=== PATIENT | male | born 1950 | race Caucasian/White ===

== ENCOUNTER → 2017-02-06 | Outpatient (CLI) | payer OTHER, BC ==
[~2017-02-06] MED LIST: ASPCH81X PO; ATOR-26 PO; CHOL2000 PO; CITA20TA4 PO; FOLITAB21 PO; GLIM4TAB PO; KETO10TA PO; LRT5 PO; LVMI SC; METF1TAB53 PO; OLME1TAB11 PO; OXYC-57 PO; PANT1TAB48 PO; PANT40TA; WARF10TA4 PO; WARF4TAB8 PO
--- NOTE | 2017-02-06 14:04 | DIAGNOSTIC IMAGING REPORT ---
CHEST 2 VIEWS ROUTINE CLINICAL HISTORY: PRE OP TESTING, WENT TO [facility], SEND TO [facility] COMPARISON STUDY: No previous studies for comparison. FINDINGS: The bones soft tissues and hemidiaphragms are normal. The cardiomediastinal silhouette is normal. The lungs are clear. The pulmonary vasculature is normal. IMPRESSION: Negative chest. Electronically signed by: Gt Liriano M.D. 02/06/2017 2:03 PM Dictated Date/Time: 02/06/2017 2:03 PM
[2017-02-06 15:04] LABS: BASO % 0.6 %; BASO ABS # 0.04 K/uL (0-0.2); COMPLETE YES; EOS % 2.1 %; HEMATOCRIT 37.1 % (42-52); IG% 0.3 %; LYMPH % 21.8 %; LYMPH ABS # 1.54 K/uL (1.2-3.4); MEAN CELL VOLUME 89.8 fL (80-100); MEAN CORPUSCULAR HEMOGLOBIN 29.5 pg (25-34); MEAN CORPUSCULAR HGB CONC 32.9 g/dl (32-36); MEAN PLATELET VOLUME 11.4 fL (7.4-10.4); MONO % 10.2 %; PLATELET COUNT 170 K/uL (130-400); RED BLOOD COUNT 4.13 M/uL (4.7-6.1); WHITE BLOOD COUNT 7.05 K/uL (4.8-10.8)
[2017-02-06 15:26] LABS: BLOOD UREA NITROGEN 18 mg/dl (7-18); BUN/CREATININE RATIO 13.5 (10-20); CALCIUM 8.3 mg/dl (8.5-10.1); CARBON DIOXIDE 31 mmol/L (21-32); CHLORIDE 105 mmol/L (98-107); GLUCOSE 73 mg/dl (70-99); POTASSIUM 3.9 mmol/L (3.5-5.1); SODIUM 142 mmol/L (136-145)
== END | disposition home or self-care (01) ==
LOC: C.LAB 13:01
PROVIDERS: ATTEND Orthopaedic Surgery
DX: Z01.811 Encounter for preprocedural respiratory examination (principal); Z01.810 Encounter for preprocedural cardiovascular examination; Z01.812 Encounter for preprocedural laboratory examination; M25.511 Pain in right shoulder

== ENCOUNTER 2017-02-22 13:03 | Day surgery (SDC) | payer OTHER, BC ==
[2017-02-14 09:06] VITALS: BMI 28.0
[2017-02-14 11:45] VITALS: BMI 28.0
--- NOTE | 2017-02-21 15:50 | HISTORY & PHYSICAL EXAMINATION ---
DATE OF ADMISSION: 02/22/2017 CHIEF COMPLAINT: External impingement of the right shoulder. HISTORY OF PRESENT ILLNESS: Reynaldo is a 67-year-old right hand dominant male who has been having right shoulder pain for about 8 months. He does not recall any injuries or trauma to his shoulder. He has been having increased pain and discomfort. He is very active and tries to spend a lot of time outside. MRI of his shoulder showed external impingement, no signs of rotator cuff tear. After failing extensive conservative treatment, he decided to undergo arthroscopy. PAST MEDICAL HISTORY: Significant for diabetes, blood clots, hyperlipidemia, hypertension. PAST SURGICAL HISTORY: Significant for left rotator cuff repair. ALLERGIES: None. MEDICATIONS: Include Levimer 50 mg in the morning and 10 mg in the evening, Folbic 1 tab daily, glimepiride 8 mg daily, pantoprazole 40 mg daily, metformin 1000 mg daily, atorvastatin 80 mg daily, Benicar 20 mg daily, citalopram 20 mg daily, Coumadin 9 mg daily, aspirin 81 mg daily, and vitamin D. FAMILY HISTORY: Noncontributory. SOCIAL HISTORY: He is , never drinks. Has a 30-year history of a pack a day. He is very active. REVIEW OF SYSTEMS: He complains of right shoulder pain. All other pertinent review of systems are negative. PHYSICAL EXAMINATION: GENERAL: He is awake, alert and oriented x3. He is in no apparent distress. He is very pleasant. HEAD, EYES, EARS, NOSE, AND THROAT: Pupils are equal, round and reactive to light. Extraocular motion intact. Oral mucosa is pink and moist. HEART: Regular rate per radial pulse. LUNGS: Cristy symmetrically bilaterally with no audible breath sounds. ABDOMEN: Soft, nontender, nondistended. MUSCULOSKELETAL: On physical examination of the right shoulder, he has about 130 degrees of forward elevation before he begins having pain. He is able to get through a full range of motion. He does have pain at end range of motion. He has 4/5 muscle strength to full can testing and external rotation secondary to pain. He has negative bear hug and belly press test, significantly tender in the subacromial space. No biceps or AC joint tenderness. IMAGING: MRI of the shoulder shows no evidence of rotator cuff tear but a large subacromial spur and signs of external impingement. IMPRESSION: External impingement of the right shoulder. PLAN: Will proceed with a shoulder arthroscopy. Postoperatively, he will be placed in an arm sling and discharged to home on oral pain medications. LIDIA
[~2017-02-22] VITALS: Ht 190.5 cm; Wt 102.3 kg
--- NOTE | 2017-02-22 11:22 | History & Physical Bridge Note ---
H&P Re-Evaluation Bridge Note: I have examined the patient, reviewed the History & Physical and in the interval since the performance of the History & Physical I have noted the following changes of clinical significance: No changes noted
[~2017-02-22 13:03] MED LIST changes: +ACETAMINOPHEN 500 MG TAB PO SCH; +ATROPINE SULFATE 0.1 MG/ML 5ML SYR IV PRN; +CEFAZOLIN 2000 MG/60 ML D5W 60 ML IV SCH; +EpHEDrine SULFATE INJ 50 MG/ML AMP IV PRN; +FAMOTIDINE 20 MG TAB PO SCH; +FENTANYL CITRATE INJ 50 MCG/1 ML 2 ML VIAL IV PRN; +FENTANYL CITRATE INJ 50 MCG/1 ML 2 ML VIAL ONE; -KETO10TA PO; +LACTATED RINGER'S 1000ML 1,000 ML IV SCH; +LIDOCAINE HCL 2% 2 ML VIAL (20MG/ML) ONE; -LRT5 PO; +MIDAZOLAM HCL 1 MG/ML 2ML VIAL ONE; +MISSING PHYSICIAN SIGNATURE ON ORDER SCH; +ONDANSETRON INJ 2 MG/ML 2 ML VIAL IV PRN; +ONDANSETRON INJ 2 MG/ML 2 ML VIAL ONE; -OXYC-57 PO; -PANT40TA; +PROPOFOL IV EMULSION 10 MG/ML 20 ML VIAL IV ONE; +ROCURONIUM BROMIDE 10 MG/ML 5 ML VIAL ONE
[2017-02-22 13:44] LABS: INR 1.3 (0.9-1.1); PARTIAL THROMBOPLASTIN RATIO 1.1; PROTHROMBIN TIME (PATIENT) 14.4 SECONDS (9.0-12.0)
[2017-02-22 13:49] VITALS: BP 136/70; PULSE 45; TEMP 36.6; Ht 190.5 cm; Wt 102.3 kg
[2017-02-22] MEDS ORDERED: ROPIVACAINE 0.5% 5 MG/ML 30 ML VIAL ONE (14:27)
[2017-02-22] MEDS ORDERED: PROPOFOL IV EMULSION 10 MG/ML 20 ML VIAL IV ONE (15:01)
[2017-02-22] MEDS ORDERED: LIDOCAINE HCL 2% 2 ML VIAL (20MG/ML) ONE (15:01)
[2017-02-22] MEDS ORDERED: EpINEphrine HCL INJ 1 MG/ML 5ML SYRINGE ONE (15:33)
[2017-02-22] MEDS ORDERED: EpHEDrine SULFATE INJ 50 MG/ML AMP ONE (15:58)
[2017-02-22] MEDS ORDERED: ONDANSETRON INJ 2 MG/ML 2 ML VIAL ONE (16:47)
[2017-02-22] MEDS ORDERED: KETO10TA PO (16:55)
[2017-02-22] MEDS ORDERED: OXYC-57 PO (16:55)
--- NOTE | 2017-02-22 16:56 | Discharge Instructions ---
Discharge Instructions Date of Service Feb 22, 2017. Admission Reason for Admission: Right Shoulder Impingement Discharge Discharge Diagnosis / Problem: SAME ABOVE Discharge Goals Goal(s): Decrease discomfort, Improve function Activity Recommendations Activity Limitations: as noted below Lifting Limitations: gradually increase as tolerated Exercise/Sports Limitations: gradually increase as tolerated Driving or Machine Use: WHEN OUT OF THE SLING AND OFF OF PAIN MEDICATION . Instructions / Follow-Up Instructions / Follow-Up MEDICATIONS: * Resume previous medications unless instructed otherwise by your surgeon. * Always take pain medication on a full stomach or with food to avoid upset stomach. * Do not drink alcohol or drive while taking narcotics. * Ibuprofen or Tylenol may be taken if narcotic not needed. SPECIAL CARE INSTRUCTIONS: __ None _X_ Keep extremity elevated and iced x 48 hours; apply ice 20-30 minutes 8-10 times/day. May remove at night. _X_ Sling (WEAR NEEDED FOR COMFORT) __24 hrs/day __ Remove at night __ Shoulder Immobilizer __ 24 hrs/day __ Remove at night __ Dressing __ Maintain until seen in office, may shower with plastic over site __ Remove dressings in 24-48 hours and then may shower __ Cover incisions with band-aids after showering __ Do not remove steri-strips Call physician if chills or temperature rises above 102 degrees or pain unrelieved by prescribed pain medications at . . Current Hospital Diet Patient's current hospital diet: Discharge Diet Recommended Diet: Regular Diet Fluid Restriction: None Procedures Procedures Performed: Right Shoulder Arthroscopy, Subacromial Decompression Pending Studies Studies pending at discharge: no Work Instructions Return To Work: after follow-up Medical Emergencies . Who to Call and When: Medical Emergencies: If at any time you feel your situation is an emergency, please call 911 immediately. . Non-Emergent Contact Non-Emergency issues call your: Primary Care Provider Call Non-Emergent contact if: you have a fever, temperature is above 101.5 . "Provider Documentation" section prepared by Seth Hillman. . VTE Core Measure Inpt VTE Proph given/why not?: Treatment not indicated
[2017-02-22] MEDS ORDERED: SODIUM CHLORIDE 0.9% 1000ML 1,000 ML IV SCH (16:57)
[2017-02-22] MEDS ORDERED: ONDANSETRON INJ 2 MG/ML 2 ML VIAL IV PRN (17:00)
[2017-02-22] MEDS ORDERED: OXYCODONE/ACETAMINOPHEN 5-325 TAB PO PRN ×2 (17:00)
--- NOTE | 2017-02-22 17:05 | Anesthesiology Progress Note ---
Anesthesia Post Op Note Date & Time Feb 22, 2017 at 17:04 Vital Signs Pain Intensity: 0 Vital Signs Past 12 Hours Date Time Temp Pulse Resp B/P (MAP) Pulse Ox O2 Delivery O2 Flow Rate FiO2 02/22/17 16:51 36.6 64 18 157/88 100 Mask 10 02/22/17 13:49 36.6 45 18 136/70 Room Air Notes Mental Status: alert / awake / arousable, participated in evaluation Pt Amnestic to Procedure: Yes Nausea / Vomiting: adequately controlled Pain: adequately controlled Airway Patency, RR, SpO2: stable & adequate BP & HR: stable & adequate Hydration State: stable & adequate Anesthetic Complications: no major complications apparent
--- NOTE | 2017-02-22 17:20 | [facility] Post Operative Brief Note ---
Immediate Operative Summary Operative Date Feb 22, 2017. Pre-Operative Diagnosis External impingement of the right shoulder Post-Operative Diagnosis Same as preop Procedure(s) Performed Right Shoulder Arthroscopy, Subacromial Decompression Surgeon Dr. Wright Clinical Informatics Physician Surgeon(s) None Estimated Blood Loss 5 ml Findings as above Specimens none Complication(s) None Disposition Recovery Room / PACU
[2017-02-22 17:30] VITALS: BP 123/62; PULSE 48; TEMP 36.3; O2SAT 96
[2017-02-22 18:00] VITALS: BP 116/53; PULSE 46; O2SAT 99
[2017-02-22 18:30] VITALS: BP 107/53; PULSE 53; TEMP 36.3; O2SAT 99
--- NOTE | 2017-02-22 23:35 | OPERATIVE REPORT ---
DATE OF OPERATION: 02/22/2017 PREOPERATIVE DIAGNOSIS: Severe external impingement of the right shoulder. POSTOPERATIVE DIAGNOSIS: Same. PROCEDURE: Right shoulder diagnostic arthroscopy with extensive debridement and acromioplasty. SURGEON: Dr. Cornelio Wright. DAY CARE PROVIDER: Fernando Hillman PA-C, whose assistance was necessary for positioning the arm and helping with instrumentation. ANESTHESIA: General with a right interscalene nerve block. COMPLICATION: None. CONDITION: Stable to PACU. INDICATIONS: Reynaldo is a pleasant 67-year-old male who presented to my office with complaints of 8-month history of right shoulder pain. MRI showed an intact rotator cuff. Physical examination was positive for severe external impingement. After failing extensive conservative treatment including multiple injections, he elected to proceed with arthroscopy. DESCRIPTION OF PROCEDURE: On 02/22/2017, he arrived at [facility] for the above procedure. He was seen in the preoperative holding area and the operative extremity was identified and signed. He was given a preoperative antibiotic and a right interscalene nerve block. He was taken back to the operating room, laid on table in supine position, and put under general anesthesia. He was then put into the beachchair position. The right shoulder was prepped and draped in sterile fashion. Timeout was done, and the patient and operative extremity was properly identified. A scope was introduced in the posterior portal. Diagnostic arthroscopy showed no cartilage damage to the humeral head or the glenoid. The biceps tendon was intact and went through a normal size biceps gerri mechanism. The supraspinatus, infraspinatus, teres minor and subscapularis were all checked and intact. An anterior portal was made. A shaver was used to do a debridement of some of the intraarticular structures. The biceps tendon was pulled into the joint without any evidence of pathology. The scope was then put in the subacromial space. A lateral portal was made. A shaver was used to do a complete subacromial and subdeltoid bursectomy. An ablator was used to tease the coracoacromial ligament off the undersurface of the acromion and a 5-0 selma was used to complete acromioplasty of a very large Bigliani type 3 acromion. A shaver was used to remove any excess debris. The bursal side of the rotator cuff was examined extensively. There was a lot of fraying of the bursal side of the cuff underneath where the bone spur was, but there was no rotator cuff tears. Multiple pictures were taken. Arthroscopic instruments then were removed from the shoulder. Portal sites were closed with 3-0 nylon. He was then placed in a soft dressing and regular arm sling. He was then extubated, transferred to a litter, and taken to the postanesthesia care unit in stable condition. He tolerated the procedure well. I attest to the content of the Intraoperative Record and any orders documented therein. Any exception s are noted below.
== END 2017-02-22 19:00 | disposition home or self-care (01) ==
LOC: C.ACU 13:03
PROVIDERS: ATTEND Orthopaedic Surgery
DX: M75.41 Impingement syndrome of right shoulder (principal); E11.9 Type 2 diabetes mellitus without complications; E78.5 Hyperlipidemia, unspecified; I10 Essential (primary) hypertension; Z86.718 Personal history of other venous thrombosis and embolism; Z79.82 Long term (current) use of aspirin; Z79.01 Long term (current) use of anticoagulants